=== PATIENT | female | born 1980 | race Caucasian/White ===

== ENCOUNTER 2024-09-15 08:02 | Emergency (ER) | payer OTHER ==
[~2024-09-15] VITALS: Ht 165.1 cm; Wt 70.8 kg
[2024-09-15] MEDS ORDERED: TOPI50TA24 PO (08:27)
[2024-09-15] MEDS ORDERED: ROSU20TA2 PO (08:27)
[2024-09-15] MEDS ORDERED: BUPR100T6 PO (08:27)
[2024-09-15 08:35] LABS: *BILIRUBIN,URIN NEGATIVE (NEGATIVE); *BLOOD, URINE 2+ (NEGATIVE); *CLARITY,URINE CLEAR (CLEAR); *COLOR,URINE YELLOW (YELLOW); *KETONES,URINE NEGATIVE (NEGATIVE); *PROTEIN,URINE NEGATIVE (NEGATIVE); *UROBILINOGEN,URINE 0.2 E.U./dl (NORMAL); LEUKOCYTE ESTERASE ,URINE NEGATIVE (NEGATIVE); NITRITE, URINE NEGATIVE (NEGATIVE); UGLUCOSE NEGATIVE (NEGATIVE)
[2024-09-15 08:48] LABS: BASOPHILS # (AUTO) 0.1 K/UL (0.0-0.2); BASOPHILS % (AUTO) 1.3 % (0.0-2.0); EOSINOPHILS # (AUTO) 0.1 K/uL (0.0-0.7); EOSINOPHILS % (AUTO) 1.9 % (0.0-7.0); HEMATOCRIT 36.2 % (31.2-41.9); HEMOGLOBIN 11.8 g/dL (10.9-14.3); LYMPHOCYTES % (AUTO) 43.5 % (20.5-51.5); MEAN CORPUSCULAR HEMOGLOBIN 29.3 uug (24.7-32.8); MEAN CORPUSCULAR HGB CONC 33 g/dL (32.3-35.6); MEAN CORPUSCULAR VOLUME 89.7 fL (75.5-95.3); MONOCYTES # (AUTO) 0.3 K/uL (0.1-1.30); MONOCYTES % (AUTO) 7.6 % (0.0-11.0); NEUTROPHILS # (AUTO) 2.1 K/uL (1.8-8.9); NEUTROPHILS % (AUTO) 45.7 % (38.5-71.5); PLATELET COUNT (AUTO) 256 K/uL (179-408); RED BLOOD CELL COUNT(AUTO) 4.03 MIL/uL (3.63-4.92); RED CELL DISTRIBUTION WIDTH 18.5 % (12.3-17.7); WHITE BLOOD COUNT (AUTO) 4.5 K/uL (3.8-11.8)
[2024-09-15] MEDS: IV NS 1000 ML 1,000 ML IV ONE (08:51)
[2024-09-15 08:52] LABS: DIFFERENTIAL COMMENT 1
[2024-09-15 08:54] LABS: *URINE HCG, QUAL NEGATIVE (NEGATIVE)
[2024-09-15 09:01] LABS: CARBON DIOXIDE 27 mmol/L (21-32); CHLORIDE 105 mmol/L (98-107); CREATININE 0.7 mg/dL (0.6-1.3); GLUCOSE 96 mg/dL (74-106); POTASSIUM 3.8 mmol/L (3.5-5.1); SODIUM SERUM 141 mmol/L (136-145); UREA NITROGEN, BLOOD 7 mg/dL (7-18)
[2024-09-15 09:12] LABS: ALANINE AMINOTRANSFERASE 25 U/L (14-59); ALBUMIN 3.7 g/dL (3.4-5.0); ALKALINE PHOSPHATASE 79 U/L (50-136); ASPARTATE AMINOTRANSFERASE 19 U/L (15-37); BILIRUBIN,DIRECT 0.1 mg/dL (0.0-0.2); BILIRUBIN,TOTAL 0.3 mg/dL (0.2-1.0); TOTAL PROTEIN, SERUM 7.6 g/dL (6.4-8.2)
[2024-09-15 09:31] LABS: WBC,URINE NONE SEEN /HPF (0-3)
[2024-09-15] MEDS ORDERED: HYDR-3972 PO (10:26)
[2024-09-15 10:35] VITALS: BP 130/79; O2SAT 100
== END 2024-09-15 10:37 | disposition home or self-care (01) ==
LOC: ER 08:02
DX: R07.89 Other chest pain (principal); M54.2 Cervicalgia; R00.2 Palpitations; R06.00 Dyspnea, unspecified; R51.9 Headache, unspecified; F41.9 Anxiety disorder, unspecified; Z79.899 Other long term (current) drug therapy; Z88.0 Allergy status to penicillin
CPT/HCPCS: 99285; 93880; 96360; 71045; 96361; 80076; 80048; 81001; 84703; 85025; 84484; 36415; 93005; J7040; A4606; A4663

== ENCOUNTER 2024-10-11 20:05 | Emergency (ER) | payer OTHER ==
[~2024-10-11] VITALS: Ht 165.1 cm; Wt 70.3 kg
[~2024-10-11 20:05] MED LIST: BUPR100T6 PO; HYDR-3972 PO; ROSU20TA2 PO; TOPI50TA24 PO
[2024-10-11] MEDS ORDERED: GABA100C PO (20:17)
[2024-10-11] MEDS ORDERED: PROP10TA10 PO (20:17)
[2024-10-11] MEDS ORDERED: CYCL10TA9 PO (20:17)
[2024-10-11] MEDS ORDERED: SIMETHICONE 80 MG TAB.CHEW ONE (20:43)
[2024-10-11] MEDS ORDERED: METOCLOPRAMIDE HCL 10 MG/2 ML VIAL ONE (20:43)
[2024-10-11] MEDS: FAMOTIDINE. 20 MG/2 ML VIAL IV ONE (20:45)
[2024-10-11 20:53] LABS: *BILIRUBIN,URIN NEGATIVE (NEGATIVE); *BLOOD, URINE NEGATIVE (NEGATIVE); *CLARITY,URINE CLEAR (CLEAR); *COLOR,URINE YELLOW (YELLOW); *KETONES,URINE NEGATIVE (NEGATIVE); *PROTEIN,URINE NEGATIVE (NEGATIVE); *UROBILINOGEN,URINE 0.2 E.U./dl (NORMAL); LEUKOCYTE ESTERASE ,URINE NEGATIVE (NEGATIVE); NITRITE, URINE NEGATIVE (NEGATIVE); UGLUCOSE NEGATIVE (NEGATIVE)
[2024-10-11 20:55] LABS: *URINE HCG, QUAL NEGATIVE (NEGATIVE)
[2024-10-11 21:01] LABS: BASOPHILS # (AUTO) 0.1 K/UL (0.0-0.2); BASOPHILS % (AUTO) 1.1 % (0.0-2.0); EOSINOPHILS # (AUTO) 0.1 K/uL (0.0-0.7); EOSINOPHILS % (AUTO) 1.8 % (0.0-7.0); HEMATOCRIT 37.3 % (31.2-41.9); HEMOGLOBIN 12.3 g/dL (10.9-14.3); LYMPHOCYTES % (AUTO) 48.4 % (20.5-51.5); MEAN CORPUSCULAR HEMOGLOBIN 29.4 uug (24.7-32.8); MEAN CORPUSCULAR HGB CONC 33 g/dL (32.3-35.6); MEAN CORPUSCULAR VOLUME 89.5 fL (75.5-95.3); MONOCYTES # (AUTO) 0.6 K/uL (0.1-1.30); MONOCYTES % (AUTO) 8.9 % (0.0-11.0); NEUTROPHILS # (AUTO) 2.5 K/uL (1.8-8.9); NEUTROPHILS % (AUTO) 39.8 % (38.5-71.5); PLATELET COUNT (AUTO) 234 K/uL (179-408); RED BLOOD CELL COUNT(AUTO) 4.16 MIL/uL (3.63-4.92); RED CELL DISTRIBUTION WIDTH 17.3 % (12.3-17.7); WHITE BLOOD COUNT (AUTO) 6.2 K/uL (3.8-11.8)
[2024-10-11 21:05] LABS: DIFFERENTIAL COMMENT 1
[2024-10-11 21:09] LABS: CALCIUM 9.1 mg/dL (8.5-10.1); CREATININE 0.7 mg/dL (0.6-1.3); POTASSIUM 3.8 mmol/L (3.5-5.1)
[2024-10-11 21:15] LABS: ALBUMIN 3.7 g/dL (3.4-5.0); BILIRUBIN,DIRECT 0.1 mg/dL (0.0-0.2); BILIRUBIN,TOTAL 0.2 mg/dL (0.2-1.0); TOTAL PROTEIN, SERUM 7.3 g/dL (6.4-8.2)
[2024-10-11] MEDS: SIMETHICONE 80 MG TAB.CHEW PO ONE (21:29)
[2024-10-11] MEDS: METOCLOPRAMIDE HCL 10 MG/2 ML VIAL IV ONE (21:29)
[2024-10-11] MEDS: IV NORMAL SALINE 1000 ML BAG IV ONE (21:29)
[2024-10-11] MEDS ORDERED: FAMOTIDINE. 20 MG/2 ML VIAL IV ONE (21:30)
[2024-10-11] MEDS: KETOROLAC TROMETHAMINE 15 MG INJ IVP ONE (22:21)
[2024-10-11] MEDS ORDERED: METO-295 PO (22:21)
[2024-10-11 22:46] VITALS: BP 122/70; TEMP 97.5; O2SAT 99
== END 2024-10-11 22:49 | disposition home or self-care (01) ==
LOC: ER 20:08
DX: R10.9 Unspecified abdominal pain (principal); R11.0 Nausea; M54.2 Cervicalgia; M54.9 Dorsalgia, unspecified; R51.9 Headache, unspecified; F41.9 Anxiety disorder, unspecified; M79.7 Fibromyalgia; Z79.899 Other long term (current) drug therapy; Z88.0 Allergy status to penicillin; Z90.49 Acquired absence of other specified parts of digestive tract; Z60.2 Problems related to living alone
CPT/HCPCS: 99285; 74176; 96374; 96375; 96361; 80076; 80048; 81003; 84703; 83690; 85025; 36415; J1885; J3490; J2765; J7040; A4606; A4663

== ENCOUNTER 2025-04-01 22:18 | Emergency (ER) | payer SELFPAY ==
[~2025-04-01] VITALS: Ht 165.1 cm; Wt 72.6 kg
[2025-04-01 22:18] VITALS: BP 114/69
[~2025-04-01 22:18] MED LIST changes: -BUPR100T6 PO; +CYCL10TA9 PO; +GABA100C PO; -HYDR-3972 PO; +METO-295 PO; +PROP10TA10 PO; -ROSU20TA2 PO; -TOPI50TA24 PO
[2025-04-01 22:46] LABS: *BILIRUBIN,URIN NEGATIVE (NEGATIVE); *BLOOD, URINE NEGATIVE (NEGATIVE); *CLARITY,URINE CLEAR (CLEAR); *COLOR,URINE YELLOW (YELLOW); *KETONES,URINE NEGATIVE (NEGATIVE); *PROTEIN,URINE NEGATIVE (NEGATIVE); *UROBILINOGEN,URINE 0.2 E.U./dl (NORMAL); LEUKOCYTE ESTERASE ,URINE NEGATIVE (NEGATIVE); NITRITE, URINE NEGATIVE (NEGATIVE); UGLUCOSE NEGATIVE (NEGATIVE)
[2025-04-01 22:54] LABS: *URINE HCG, QUAL NEGATIVE (NEGATIVE)
[2025-04-01 23:14] VITALS: BP 114/69; TEMP 98; O2SAT 99
== END 2025-04-01 23:15 | disposition home or self-care (01) ==
LOC: ER 22:18
DX: R10.9 Unspecified abdominal pain (principal); R05.9 Cough, unspecified; R51.9 Headache, unspecified; Z20.822 Contact with and (suspected) exposure to COVID-19; E78.5 Hyperlipidemia, unspecified; I51.9 Heart disease, unspecified; K80.20 Calculus of gallbladder without cholecystitis without obstruction; M79.7 Fibromyalgia; Z88.0 Allergy status to penicillin; Z90.49 Acquired absence of other specified parts of digestive tract
CPT/HCPCS: 71045; 84703; A4606; A4663

== ENCOUNTER 2025-05-11 00:10 | Emergency (ER) | payer OTHER ==
[~2025-05-11] VITALS: Ht 165.1 cm; Wt 72.6 kg
[2025-05-11 00:12] VITALS: BP 102/64
[2025-05-11] MEDS ORDERED: ROSU5TAB PO (00:25)
[2025-05-11] MEDS ORDERED: CLOP75TA15 PO (00:25)
[2025-05-11] MEDS ORDERED: EZET10TA15 PO (00:25)
[2025-05-11] MEDS ORDERED: KETOROLAC TROMETHAMINE 15 MG INJ ONE (00:43)
[2025-05-11] MEDS ORDERED: LIDO30AD10 TP (00:50)
[2025-05-11] MEDS ORDERED: CYCL5TAB PO (00:50)
[2025-05-11 00:58] LABS: PLATELET COUNT (AUTO) 223 K/uL (179-408); RED BLOOD CELL COUNT(AUTO) 4.34 MIL/uL (3.63-4.92); RED CELL DISTRIBUTION WIDTH 16.6 % (12.3-17.7); WHITE BLOOD COUNT (AUTO) 7.0 K/uL (3.8-11.8)
[2025-05-11 01:02] LABS: *BILIRUBIN,URIN NEGATIVE (NEGATIVE); *BLOOD, URINE 3+ (NEGATIVE); *CLARITY,URINE SLIGHTLY CLOUDY (CLEAR); *COLOR,URINE YELLOW (YELLOW); *KETONES,URINE NEGATIVE (NEGATIVE); *PROTEIN,URINE NEGATIVE (NEGATIVE); *UROBILINOGEN,URINE 0.2 E.U./dl (NORMAL); LEUKOCYTE ESTERASE ,URINE TRACE (NEGATIVE); NITRITE, URINE NEGATIVE (NEGATIVE); UGLUCOSE NEGATIVE (NEGATIVE)
[2025-05-11 01:03] LABS: CREATININE 0.6 mg/dL (0.6-1.3); SODIUM SERUM 139.0 mmol/L (136-145); UREA NITROGEN, BLOOD 12.0 mg/dL (7-18)
[2025-05-11 01:06] LABS: *URINE HCG, QUAL NEGATIVE (NEGATIVE)
[2025-05-11 01:09] LABS: ASPARTATE AMINOTRANSFERASE 38.0 U/L (15-37); TOTAL PROTEIN, SERUM 7.8 g/dL (6.4-8.2)
[2025-05-11 01:12] LABS: SQUAMOUS EPITHELIAL CELL,UR MODERATE /HPF (NONE SEEN)
[2025-05-11] MEDS: KETOROLAC TROMETHAMINE 15 MG INJ IVP ONE (01:14)
[2025-05-11] MEDS: CYCLOBENZAPRINE HCL 10 MG TABLET PO ONE (01:14)
[2025-05-11] MEDS: IV NORMAL SALINE 1000 ML BAG IV ONE (01:14)
[2025-05-11] MEDS: LIDOCAINE 5% PATCH TD ONE (01:14)
[2025-05-11 01:59] VITALS: BP 102/64; O2SAT 99
== END 2025-05-11 01:59 | disposition home or self-care (01) ==
LOC: ER 00:16
DX: M54.42 Lumbago with sciatica, left side (principal); D25.9 Leiomyoma of uterus, unspecified; E78.00 Pure hypercholesterolemia, unspecified; I42.9 Cardiomyopathy, unspecified; Z79.02 Long term (current) use of antithrombotics/antiplatelets; Z79.899 Other long term (current) drug therapy; Z88.0 Allergy status to penicillin; Z96.642 Presence of left artificial hip joint
CPT/HCPCS: 99285; 74176; 96374; 96361; 80076; 80048; 81001; 84703; 83690; 85025; 36415; J1885; J7040; A4606; A4663

== ENCOUNTER 2025-06-19 11:02 | Emergency (ER) | payer OTHER ==
[~2025-06-19 11:02] MED LIST changes: +CLOP-31 PO; +CYCL10TA24 PO; -CYCL10TA9 PO; +CYCL5TAB4 PO; +EZET10TA83 PO; +LIDO30AD10 TP; +ROSU5TAB PO
== END 2025-06-19 13:23 | disposition left against medical advice (07) ==
LOC: ER 11:02
DX: Z53.21 Procedure and treatment not carried out due to patient leaving prior to being seen by health care provider (principal)